=== PATIENT | female | born 1980 | race African-American/Black ===

== ENCOUNTER 2025-09-21 21:48 | Emergency (ER) | payer OTHER, SELFPAY ==
[2025-09-21] MEDS ORDERED: Dexamethasone 4 MG TAB ONE (23:19)
[2025-09-21] MEDS ORDERED: diphenhydrAMINE 25 MG CAP ONE (23:19)
[2025-09-21] MEDS ORDERED: Famotidine 20 MG TAB ONE (23:20)
== END 2025-09-22 00:14 | disposition home or self-care (01) ==
LOC: CSHERS 21:48
DX: L29.9 Pruritus, unspecified (principal)
CPT/HCPCS: 99282; J8540